=== PATIENT | male | born 1995 | race Caucasian/White ===

== ENCOUNTER 2018-12-16 07:14 | Emergency (ER) | payer OTHER ==
[2018-12-16] MEDS ORDERED: NS 0.9% 1000 ML** 1,000 ML IV ONE (07:32)
[2018-12-16] MEDS ORDERED: Ondansetron INJ* 2 MG/ML VIAL IV ONE (07:32)
--- NOTE | 2018-12-16 07:35 | ED ---
Nausea/Vomiting/Diarrhea HPI - HPI Summary HPI Summary: Pt. is a 23 y.o male who presents to the ER for vomiting, diarrhea, and abd. cramping that started last night. Pt. states he was rx 200mg of doxycycline for a tick bite that he took yesterday. Pt. states shortly after he developed vomiting, diarrhea, and abd. pain. Denies rash, facial or mouth swelling. No past medical hx. Sxs are moderate in severity. No current modifying factors. Pt. states he has had around 12 episodes of emesis. - History of Current Complaint Chief Complaint: EDNauseaVomitDiarrh Stated Complaint: REACTION TO MEDICATION/ VOMITING PER EMS Time Seen by Provider: 12/16/18 07:20 Hx Obtained From: Patient Pain Intensity: 5 - Allergies/Home Medications Allergies/Adverse Reactions: Allergies Allergy/AdvReac Type Severity Reaction Status Date / Time No Known Allergies Allergy Verified 01/16/16 17:13 PMH/Surg Hx/FS Hx/Imm Hx Previously Healthy: Yes Infectious Disease History: No Infectious Disease History: Denies: Traveled Outside the [place] in Last 30 Days - Family History Known Family History: Positive: None, Non-Contributory - Social History Occupation: Unemployed Lives: With Family Alcohol Use: Occasionally Substance Use Type: Reports: None Smoking Status (MU): Light Every Day Tobacco Smoker Review of Systems Positive: Fever, Chills ENT: Negative Cardiovascular: Negative Negative: Palpitations, Chest Pain Positive: Shortness Of Breath. Negative: Cough Positive: Abdominal Pain, Vomiting, Diarrhea, Nausea Genitourinary: Negative Negative: dysuria Musculoskeletal: Negative Skin: Negative Neurological: Negative All Other Systems Reviewed And Are Negative: Yes Physical Exam Triage Information Reviewed: Yes Vital Signs On Initial Exam: Initial Vitals Temp Pulse Resp BP Pulse Ox 97.4 F 72 20 128/77 94 12/16/18 07:19 12/16/18 07:19 12/16/18 07:19 12/16/18 07:19 12/16/18 07:19 Vital Signs Reviewed: Yes Appearance: Positive: Well-Nourished - Pt. lying in bed with eyes closed, appears to feel unwell. Nontoxic. Skin: Positive: Warm, Dry Head/Face: Positive: Normal Head/Face Inspection Eyes: Positive: Normal, EOMI, DAVID, Conjunctiva Clear ENT: Positive: Pharynx normal, TMs normal Neck: Positive: Supple Respiratory/Lung Sounds: Positive: Clear to Auscultation, Breath Sounds Present Cardiovascular: Positive: Normal, RRR Abdomen Description: Positive: Other: - Obese. Abd. is soft with diffuse tenderness in all quadrants. Neurological: Positive: Normal, CN Intact II-III Psychiatric: Positive: Affect/Mood Appropriate Diagnostics - Vital Signs Vital Signs Temp Pulse Resp BP Pulse Ox 12/16/18 07:19 97.4 F 72 20 128/77 94 - Laboratory Result Diagrams: 12/16/18 07:47 12/16/18 07:47 Lab Statement: Any lab studies that have been ordered have been reviewed, and results considered in the medical decision making process. Naus/Vom/Diarrhea Course/Dx - Course Course Of Treatment: Pt. presenting for V/D and diffuse abd. pain. Afebrile. Benign abd. exam. Will check basic labs. Zofran and fluids given. Labs show minimally elevated glucose, wbc and bilirubin. On re-exam pt. is feeling better and drinking water without vomiting. Pt.'s Aunt now present. Suspect sxs are viral in nature. Will dc home with zofran. Clear liquid diet x 24 hours. Close f.u with pcp and return to ER if sxs change or worsen. Pt. understands and agrees with plan. - Differential Dx/Diagnosis Differential Diagnoses - Male: Appendicitis, Bowel Obstruction, Constipation, Gastroenteritis (Viral), Gastroenteritis (Bacterial), Vomiting, Diarrhea Provider Diagnosis: Vomiting and diarrhea Condition At Discharge: Improved Discharge - Sign-Out/Discharge Documenting (check all that apply): Patient Departure Patient Received Moderate/Deep Sedation with Procedure: No - Discharge Plan Condition: Improved Disposition: HOME Prescriptions: Ondansetron ODT TAB* [Zofran 4 MG Odt TAB*] 4 mg PO Q6H PRN #12 tab.odt PRN Reason: Nausea Patient Education Materials: Gastroenteritis (ED) Forms: *Work Release Referrals: Flako Lan MD [Primary Care Provider] - Additional Instructions: Follow up with PCP in 2-3 days if symptoms persist Zofran as directed for nausea Clear liquid diet x 24 hours Return to ER if symptoms change or worsen - Billing Disposition and Condition Condition: IMPROVED Disposition: Home
[2018-12-16 08:07] LABS: ABS Lymphocytes 0.2 10^3/ul (1.0-4.8); ABS Monocytes 0.3 10^3/ul (0-0.8); ABS Neutrophils 11.3 10^3/ul (1.5-7.7); Eosinophil % 0.2 %; Hematocrit 52 % (42-52); Lymphocyte % 1.9 %; Mean Corpuscular HGB Conc 33 g/dL (31-36); Mean Corpuscular Hemoglobin 28 pg (27-31); Mean Corpuscular Volume 83 fL (80-94); Mean Platelet Volume 9.7 fL (7.4-10.4); Nucleated Red Blood Cells % 0.2; Platelet Count 220 10^3/uL (150-450); Red Blood Count 6.19 10^6 /uL (4.18-5.48); Red Cell Distribution Width 14 % (10.5-15); White Blood Count 11.8 10^3/uL (3.5-10.8)
[2018-12-16 08:13] LABS: Albumin 4.3 g/dL (3.2-5.2); Calcium 9.1 mg/dL (8.6-10.3); Total Bilirubin 1.7 mg/dL (0.2-1.0)
[2018-12-16 08:19] LABS: Albumin/Globulin Ratio 1.6 (1-3); BUN/Creatinine Ratio 18.9 (8-20); EGFR African American 97.7 (>60); EGFR Non-African American 80.7 (>60); Globulin 2.7 g/dL (2-4)
[2018-12-16 09:25] VITALS: BP 117/70
== END 2018-12-16 09:26 | disposition home or self-care (01) ==
LOC: ED 07:14
DX: R11.10 Vomiting, unspecified (principal); R19.7 Diarrhea, unspecified; F17.210 Nicotine dependence, cigarettes, uncomplicated
CPT/HCPCS: 36415; 80053; 83690; 85025; 96361; 96374; 99283; J2405

== ENCOUNTER 2019-09-14 10:47 | Emergency (ER) | payer SELFPAY ==
--- NOTE | 2019-09-14 13:35 | ED ---
Back Pain - HPI Summary HPI Summary: Patient is a 23-year-old male who presents emergency department for evaluation of ongoing back pain since age of 11 as well as loose stools times one year. Patient states he went to physical therapy when he was younger. Patient denies any recent injury to back. 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 Patient denies radicular pain into legs. Denies numbness, tingling or weakness. Denies bowel or bladder incontinence or retention. Patient also notes she's been having frequent stools over the last one year. No abdominal pain, vomiting or fever. Symptoms are mild in severity. No current modifying factors. - History of Current Complaint Chief Complaint: EDBackInjuryPain Stated Complaint: BACK PAIN/GASSY/DIARREA PER PT Time Seen by Provider: 09/14/19 13:07 Hx Obtained From: Patient Pain Intensity: 3 - Allergies/Home Medications Allergies/Adverse Reactions: Allergies Allergy/AdvReac Type Severity Reaction Status Date / Time No Known Allergies Allergy Verified 09/14/19 10:59 Home Medications: Home Medications DOXYcycline CAP(*) [DOXYcycline 100MG CAP(*)] 100 mg PO BID #20 cap 01/16/16 [ Rx Confirmed 12/16/18] Ondansetron ODT TAB* [Zofran 4 MG Odt TAB*] 4 mg PO Q6H PRN #12 tab.odt [Rx] PMH/Surg Hx/FS Hx/Imm Hx Previously Healthy: Yes Infectious Disease History: No Infectious Disease History: Denies: Traveled Outside the [place] in Last 30 Days - Family History Known Family History: Positive: None, Non-Contributory - Social History Occupation: Employed Full-time Lives: With Family Alcohol Use: Occasionally Substance Use Type: Reports: None Smoking Status (MU): Light Every Day Tobacco Smoker Review of Systems Constitutional: Negative Negative: Fever Cardiovascular: Negative Respiratory: Negative Gastrointestinal: Negative Positive: Diarrhea Genitourinary: Negative Positive: Other - Low back pain Neurological/Mental Status: Negative Negative: Weakness, Paresthesia, Numbness All Other Systems Reviewed And Are Negative: Yes Physical Exam Triage Information Reviewed: Yes Vital Signs On Initial Exam: Initial Vitals Temp Pulse Resp BP Pulse Ox 97.9 F 82 18 137/91 97 09/14/19 10:53 09/14/19 10:53 09/14/19 10:53 09/14/19 10:53 09/14/19 10:53 Vital Signs Reviewed: Yes Appearance: Positive: Well-Appearing - Pt. sitting on bed in NAD. Moves around rooms easily. Skin: Positive: Warm, Dry Head/Face: Positive: Normal Head/Face Inspection Eyes: Positive: Normal, EOMI, DAVID Neck: Positive: Supple Respiratory/Lung Sounds: Positive: Clear to Auscultation, Breath Sounds Present Cardiovascular: Positive: Normal, RRR Abdomen Description: Positive: Nontender, Soft. Negative: Distended, Guarding Musculoskeletal: Positive: Normal, Strength/ROM Intact, Other - 5/5 strength in bilateral LEs. Negative straight leg. Neurological: Positive: Normal, CN Intact II-III Psychiatric: Positive: Affect/Mood Appropriate Procedures - Sedation Patient Received Moderate/Deep Sedation with Procedure: No Diagnostics - Vital Signs Vital Signs Temp Pulse Resp BP Pulse Ox 09/14/19 10:53 97.9 F 82 18 137/91 97 - Laboratory Lab Statement: Any lab studies that have been ordered have been reviewed, and results considered in the medical decision making process. Back Pain Course/Dx - Course Course Of Treatment: Patient with ongoing low back pain times greater than 10 years. No new injuries. No neurological deficits. Given ongoing pain x-ray was obtained to rule out neoplasm, just disease. Patient also notes frequent stools times one year. Has no reversal abdominal pain. X-ray of lumbar spine negative for acute findings per radiology. We'll refer patient back to family doctor for further evaluation of back pain and loose stools. Advised back strengthening and supportive shoes. Ibuprofen for pain as directed. Return for new or worsening symptoms. Patient understands and agrees with plan. - Diagnoses Differential Diagnosis/HQI/PQRI: Positive: Arthritis, Fracture, Herniated Disc, Neoplasm, Strain, Sprain Provider Diagnoses: Low back pain, Frequent stools Discharge ED - Sign-Out/Discharge Documenting (check all that apply): Patient Departure - Discharge Plan Condition: Good Disposition: HOME Patient Education Materials: Chronic Back Pain (DC), Lower Back Exercises (ED) Referrals: Flako Lan MD [Primary Care Provider] - Additional Instructions: Please schedule a follow up appointment with PCP for further evaluation Perform back exercised provided Wear supportive shoes Tylenol or Motrin for pain as directed Heat as needed Return to ER if symptoms change or worsen - Billing Disposition and Condition Condition: GOOD Disposition: Home
[2019-09-14 14:41] VITALS: BP 116/79
== END 2019-09-14 14:41 | disposition home or self-care (01) ==
LOC: ED 10:47
DX: M54.5 Low back pain (principal); R19.4 Change in bowel habit; F17.200 Nicotine dependence, unspecified, uncomplicated
CPT/HCPCS: 72110; 99282

== ENCOUNTER 2021-09-29 22:24 | Inpatient (IN) ==
[2021-09-30] MEDS ORDERED: Al Hydrox/Mg Hydrox/Simet LIQ 30 ML UDC PO PRN (10:54)
[2021-10-01 08:16] LABS: HDL Cholesterol 42.8 mg/dL
[2021-10-02 08:04] LABS: ABS Eosinophils 0.1 10^3/ul (0-0.6); ABS Lymphocytes 2.2 10^3/ul (1.0-4.8); ABS Monocytes 0.5 10^3/ul (0-0.8); Eosinophil % 1.7 %; Hematocrit 48 % (42-52); Hemoglobin 16.6 g/dL (14.0-18.0); Lymphocyte % 27.8 %; Mean Corpuscular HGB Conc 34 g/dL (31-36); Mean Corpuscular Hemoglobin 28 pg (27-31); Mean Corpuscular Volume 83 fL (80-94); Mean Platelet Volume 9.4 fL (7.4-10.4); Platelet Count 252 10^3/uL (150-450); Red Blood Count 5.84 10^6 /uL (4.18-5.48); Red Cell Distribution Width 14 % (10-15); White Blood Count 7.9 10^3/uL (3.5-10.8)
[2021-10-02 08:27] LABS: Albumin 4.6 g/dL (3.2-5.2); Calcium 9.8 mg/dL (8.6-10.3); Globulin 2.3 g/dL (2-4); Potassium 4.4 mmol/L (3.5-5.0); Total Bilirubin 1.4 mg/dL (0.2-1.0); Total Protein 6.9 g/dL (6.4-8.9); eGFR CKD-EPI 93.8 (>60)
[2021-10-02 08:36] LABS: TSH Ultra Thyroid Stim Horm 2.94 mcIU/mL (0.34-5.60)
[2021-10-03 08:34] VITALS: BP 127/76
== END 2021-10-03 11:00 | disposition home or self-care (01) | DRG 751 ==
LOC: ED 22:24 → MERGE 22:24 → EDHOLD 09-30 11:25 → BSU 09-30 14:37
PROVIDERS: ADMIT Psychiatry & Neurology Psychiatry; ATTEND Psychiatry & Neurology Psychiatry